=== PATIENT | male | born 1940 | race African-American/Black ===

== ENCOUNTER 2022-06-03 19:54 | Emergency (ER) | payer OTHER ==
[~2022-06-03] VITALS: Ht 180.3 cm; Wt 77.0 kg
[2022-06-03 20:59] LABS: BASOPHILS % 0.6 % (0.0-2.0); EOSINOPHILS % 2.7 % (0.0-5.0); HEMOGLOBIN. 13.7 g/dL (14.0-18.0); LYMPHOCYTES % 32.1 % (20.0-50.0); MEAN CORPUSCULAR HEMOGLOBIN 36.2 pg (28.0-32.0); MEAN PLATELET VOLUME 7.1 fl (7.4-10.4); MONOCYTES % 7.1 % (2.0-8.0); NEUTROPHILS % 57.5 % (40.0-76.0); PLATELET 197 x1000/uL (130-400); RED BLOOD CELL COUNT 3.78 mill/uL (4.7-6.1); RED CELL DISTRIBUTION WIDTH 13.9 % (11.6-14.6)
[2022-06-03 21:07] LABS: CHLORIDE 109 mEq/L (98-107)
[2022-06-03] MEDS ORDERED: ASPIRIN 81MG TABLET PO ONE (22:45)
[2022-06-04 01:30] VITALS: BP 140/67
== END 2022-06-04 02:25 | disposition left against medical advice (07) ==
LOC: ER 20:38 → CMPBEDREQ 06-04 08:28
DX: R55 Syncope and collapse (principal); R77.8 Other specified abnormalities of plasma proteins; I48.91 Unspecified atrial fibrillation; E11.9 Type 2 diabetes mellitus without complications; I10 Essential (primary) hypertension; I25.2 Old myocardial infarction; Z20.822 Contact with and (suspected) exposure to COVID-19
CPT/HCPCS: 36415; 71045; 80053; 82962; 83880; 84484; 85025; 87426; 93005; 99291; C9803

== ENCOUNTER 2025-04-07 05:13 | Inpatient (IN) | payer OTHER, MEDICARE ==
[~2025-04-07] VITALS: Ht 185.4 cm; Wt 74.9 kg
[2025-04-07] VITALS (50 sets, daily range): BP systolic 100–175; BP diastolic 61–117; PULSE 32–84; RESP 0–32; TEMP 36.4–36.8628; O2SAT 91–99
[~2025-04-07 05:13] MED LIST: ACAR50TA5 MT; AMLO5TAB5 MT; APIX5TAB MT; ASPI-1160 MT; ATOR20TA MT; CHOL100046; DULO60CA45 MT; GABA-534 PO; HYDR-4009 MT; ISOS-51 PO; METF-1149 MT; METO25TA6 MT; OMEP20CA14 MT; THIO300C PO; VITA1CAP MT
[2025-04-07 05:41] LABS: BASOPHILS % 1.0 % (0.0-2.0); EOSINOPHILS % 5.8 % (0.0-5.0); HEMATOCRIT. 37.5 % (42.0-52.0); HEMOGLOBIN. 13.0 g/dL (14.0-18.0); LYMPHOCYTES % 34.4 % (20.0-50.0); MEAN PLATELET VOLUME 7.6 fl (7.4-10.4); MONOCYTES % 9.0 % (2.0-8.0); NEUTROPHILS % 49.8 % (40.0-76.0); PLATELET 146 x1000/uL (130-400); RED BLOOD CELL COUNT 3.55 mill/uL (4.7-6.1); RED CELL DISTRIBUTION WIDTH 14.7 % (11.6-14.6)
[2025-04-07 05:50] LABS: CREATININE 1.4 mg/dL (0.6-1.3); UREA NITROGEN BLOOD 17.0 mg/dL (9-23)
[2025-04-07 06:11] LABS: TROPONIN I HIGH SENSITIVITY 174.0 ng/L (3.0-53)
[2025-04-07] MEDS: ATROPINE SULFATE 1MG/10ML SYR IV ONE (06:20)
[2025-04-07] MEDS ORDERED: ONDANSETRON HCL 4MG/2ML INJ IV PRN (08:30)
[2025-04-07] MEDS ORDERED: ACETAMINOPHEN 325MG TABLET PO PRN (08:30)
[2025-04-07] MEDS: ASPIRIN 81MG TABLET PO SCH (10:55)
[2025-04-07] MEDS: NIFEDIPINE XL 30MG TAB PO SCH (10:56)
[2025-04-07] MEDS: ENOXAPARIN 80MG/0.8ML SYR SUBCUT SCH ×2 (10:57→21:41)
[2025-04-07] MEDS: ISOSORBIDE MONONITRATE 30MG TABLET SR 24HR PO SCH (10:57)
[2025-04-07] MEDS ORDERED: ASCO100T12 MT (11:16)
[2025-04-07 12:04] LABS: INR 1.2
[2025-04-07 12:39] LABS: TROPONIN I HIGH SENSITIVITY 163 ng/L (3.0-53)
[2025-04-07] MEDS: ATROPINE SULFATE 1MG/10ML SYR IV PRN (15:42)
[2025-04-07] MEDS ORDERED: DOPAMINE 400MG/250ML PREMIX 250 ML IV PRN (16:45)
[2025-04-07] MEDS: ATORVASTATIN CALCIUM 40MG TABLET PO SCH (21:41)
[2025-04-08] VITALS (38 sets, daily range): BP systolic 135–195; BP diastolic 59–156; PULSE 35–78; RESP 0–32; TEMP 36.1–36.7; O2SAT 94–100
[2025-04-08 06:13] LABS: BASOPHILS % 0.8 % (0.0-2.0); EOSINOPHILS % 4.3 % (0.0-5.0); HEMATOCRIT. 40.5 % (42.0-52.0); HEMOGLOBIN. 13.9 g/dL (14.0-18.0); LYMPHOCYTES % 23.8 % (20.0-50.0); MEAN PLATELET VOLUME 7.6 fl (7.4-10.4); MONOCYTES % 8.1 % (2.0-8.0); NEUTROPHILS % 63.0 % (40.0-76.0); PLATELET 160 x1000/uL (130-400); RED BLOOD CELL COUNT 3.83 mill/uL (4.7-6.1); RED CELL DISTRIBUTION WIDTH 14.5 % (11.6-14.6)
[2025-04-08 07:05] LABS: CREATININE 1.5 mg/dL (0.6-1.3)
[2025-04-08 07:07] LABS: UREA NITROGEN BLOOD 19.0 mg/dL (9-23)
[2025-04-08] MEDS: ATROPINE SULFATE 1MG/10ML SYR IV NR (07:30)
[2025-04-08] MEDS: ISOSORBIDE MONONITRATE 30MG TABLET SR 24HR PO SCH (08:13)
[2025-04-08] MEDS: HYDRALAZINE 20MG/ML VIAL IV SCH (08:32)
[2025-04-08] MEDS: ISOSORBIDE MONONITRATE 60MG TABLET SR 24HR PO SCH (09:00)
[2025-04-08] MEDS: NIFEDIPINE XL 30MG TAB PO SCH (10:00)
[2025-04-08] MEDS ORDERED: HYDRALAZINE 20MG/ML VIAL IV PRN (10:00)
[2025-04-09] MEDS ORDERED: NIFEDIPINE XL 60MG TAB PO SCH (09:00)
== END 2025-04-08 18:25 | disposition short-term general hospital (02) | DRG 280 ==
LOC: ER 05:13 → CVICU 06:27 → EDBEDREQ 06:29 → EDBEDREQSVC 06:29 → EDBEDREQTM 06:29 → ENRESERV 06:31 → CVICU 08:29 → 6WST 04-08 11:20
PROVIDERS: ADMIT Internal Medicine; ATTEND Internal Medicine
DX: I21.4 Non-ST elevation (NSTEMI) myocardial infarction (principal); N17.0 Acute kidney failure with tubular necrosis; I48.3 Typical atrial flutter; I48.91 Unspecified atrial fibrillation; E11.9 Type 2 diabetes mellitus without complications; I25.10 Atherosclerotic heart disease of native coronary artery without angina pectoris; E78.5 Hyperlipidemia, unspecified; J44.9 Chronic obstructive pulmonary disease, unspecified; I44.30 Unspecified atrioventricular block; I10 Essential (primary) hypertension; F17.210 Nicotine dependence, cigarettes, uncomplicated; Z95.5 Presence of coronary angioplasty implant and graft
CPT/HCPCS: 36415; 71045; 80048; 83036; 84484; 85025; 93005; 93306; 96374; 99291; A4606; J0461; J1650